=== PATIENT | male | born 1950 | race Caucasian/White ===

== ENCOUNTER 2018-01-18 12:23 | Inpatient (IN) | payer OTHER ==
[~2018-01-18] VITALS: Ht 182.9 cm; Wt 101.8 kg
[2018-01-18 12:32] VITALS: Ht 182.9 cm; Wt 101.8 kg
[2018-01-18 12:59] LABS: BASOPHIL % 0.3 % (0-2); PLATELET COUNT 153 x10^3mcL (130-400); RED CELL DISTRIBUTION WIDTH 13.6 % (11.5-14.5)
[2018-01-18 13:34] LABS: CALCIUM 8.5 mg/dL (8.5-10.1); CARBON DIOXIDE 22.6 mmol/L (21-32); CHLORIDE SERUM 106 mmol/L (98-107); CREATININE SERUM 1.1 mg/dL (0.7-1.3); GFR1 > 60 mL/min; GLUCOSE SERUM 150 mg/dL (74-106); POTASSIUM SERUM 4.1 mmol/L (3.5-5.1); SODIUM SERUM 141 mmol/L (136-145)
[2018-01-18 13:44] LABS: ALKALINE PHOSPHATASE 108 U/L (46-116); ALT/SGPT 38 U/L (16-63); AST/SGOT 37 U/L (15-37); BILIRUBIN TOTAL 1.24 mg/dL (0.20-1.00); TOTAL PROTEIN, SERUM 6.7 g/dL (6.4-8.2)
[2018-01-18 13:46] LABS: ALBUMIN 3.3 g/dL (3.4-5.0)
[2018-01-18 14:17] LABS: microscopic required? NO
[2018-01-18 14:30] LABS: UA SPECIFIC GRAVITY 1.025 (1.005-1.035); urine erythrocyte NEGATIVE (NEGATIVE)
[2018-01-18] MEDS ORDERED: BACLOFEN10 MG PO ×2 (16:24→16:41)
[2018-01-18] MEDS ORDERED: PRILOSEC OTC20 M1 PO (16:24)
[2018-01-18] MEDS ORDERED: FLO4 PO (16:36)
[2018-01-18 16:53] VITALS: BP 101/65
[2018-01-18] MEDS ORDERED: BETIMOL5 M1 OU (16:54)
[2018-01-18 16:58] VITALS: BP 101/65
[2018-01-18 17:51] LABS: AMPHETAMINE QUAL UR NONE DETECTED (NEG <=1000)
[2018-01-18 17:58] LABS: MAGNESIUM 1.7 mg/dL (1.8-2.4)
[2018-01-18 18:03] LABS: T3 TOTAL 1.17 ng/mL
[2018-01-18 18:09] LABS: FREE T4 1.24 ng/dL (0.76-1.46); FREE THYROXINE INDEX 2.4 ug/dL (1.4-4.5); T4(THYROXINE) 7.5 ug/dL (4.7-13.3)
[2018-01-18 18:16] LABS: CHOLESTEROL/HDL RATIO 4.4
[2018-01-18 18:18] LABS: PHOSPHOROUS 0.8 mg/dL (2.5-4.9)
[2018-01-18 21:43] VITALS: BP 138/91
[2018-01-19 06:11] LABS: PLATELET COUNT 132 x10^3mcL (130-400); RED CELL DISTRIBUTION WIDTH 13.8 % (11.5-14.5)
[2018-01-19 06:22] LABS: BASOPHIL % 0 % (0-2)
[2018-01-19 06:28] VITALS: BP 114/79
[2018-01-19 06:55] LABS: CARBON DIOXIDE 21.4 mmol/L (21-32); CHLORIDE SERUM 103 mmol/L (98-107); CREATININE SERUM 1.2 mg/dL (0.7-1.3); GFR1 > 60 mL/min; GLUCOSE SERUM 144 mg/dL (74-106); MAGNESIUM 1.8 mg/dL (1.8-2.4); PHOSPHOROUS 2.8 mg/dL (2.5-4.9); SODIUM SERUM 138 mmol/L (136-145)
[2018-01-19 10:34] VITALS: BP 102/34
[2018-01-19 11:30] VITALS: BP 108/64
[2018-01-19 13:14] VITALS: BP 98/53
[2018-01-19 18:07] VITALS: BP 137/70
[2018-01-19 22:14] VITALS: BP 120/50
[2018-01-20 06:32] LABS: BASOPHIL % 0.1 % (0-2); RED CELL DISTRIBUTION WIDTH 14.5 % (11.5-14.5)
[2018-01-20 06:36] VITALS: BP 114/51
[2018-01-20 06:42] LABS: CALCIUM 8.1 mg/dL (8.5-10.1); CARBON DIOXIDE 25.6 mmol/L (21-32); CHLORIDE SERUM 102 mmol/L (98-107); GFR1 > 60 mL/min; GLUCOSE SERUM 150 mg/dL (74-106); MAGNESIUM 2.1 mg/dL (1.8-2.4); PHOSPHOROUS 1.5 mg/dL (2.5-4.9); POTASSIUM SERUM 3.8 mmol/L (3.5-5.1); SODIUM SERUM 136 mmol/L (136-145)
[2018-01-20 07:04] LABS: PLATELET COUNT 116 x10^3mcL (130-400)
[2018-01-20 08:20] VITALS: BP 126/59
[2018-01-20 12:44] VITALS: BP 103/36
[2018-01-20 18:21] VITALS: BP 108/41
[2018-01-20 21:41] VITALS: BP 103/54
[2018-01-21 05:58] VITALS: BP 91/49
[2018-01-21 06:44] LABS: CARBON DIOXIDE 25.3 mmol/L (21-32); CHLORIDE SERUM 105 mmol/L (98-107); GFR1 > 60 mL/min; GLUCOSE SERUM 162 mg/dL (74-106); SODIUM SERUM 138 mmol/L (136-145)
[2018-01-21 07:06] LABS: RED CELL DISTRIBUTION WIDTH 14.3 % (11.5-14.5)
[2018-01-21 07:14] LABS: BASOPHIL % 0 % (0-2); PLATELET COUNT 118 x10^3mcL (130-400)
[2018-01-21 10:15] VITALS: BP 93/52
[2018-01-21 13:15] VITALS: BP 98/52
[2018-01-21 13:55] VITALS: BP 93/52
[2018-01-21] MEDS ORDERED: LEVAQUIN750 MG PO (14:14)
[2018-01-21] MEDS ORDERED: CLEOCIN HCL300 MG PO (14:15)
[2018-01-21] MEDS ORDERED: LAC PO (14:55)
== END 2018-01-21 17:21 | disposition home health service (06) | DRG 418 ==
LOC: ED 12:23 → DU 15:02
PROVIDERS: Emergency Medicine; Family Medicine; Surgery
PROC: 0FT44ZZ Resection of Gallbladder, Percutaneous Endoscopic Approach (ICD-10-PCS; principal; 2018-01-20 09:30)
DX: K81.0 Acute cholecystitis (principal); E44.1 Mild protein-calorie malnutrition; J98.11 Atelectasis; K21.9 Gastro-esophageal reflux disease without esophagitis; K59.09 Other constipation; K76.0 Fatty (change of) liver, not elsewhere classified; N40.0 Benign prostatic hyperplasia without lower urinary tract symptoms; E66.9 Obesity, unspecified; Z68.30 Body mass index [BMI] 30.0-30.9, adult
CPT/HCPCS: 83880; 84439; 94150; 97110-GP; 97530-GP; J0690; J0696; J1650; J2060; J2175; J2250; J2270; J2405; J2543; J2704; J3010; J3490; J7030; J7042; J7120; J7620; Q0092; Q9967